=== PATIENT | male | born 1945 | race Caucasian/White ===

== ENCOUNTER → 2017-06-03 | Outpatient (CLI) | payer MEDICARE, OTHER ==
--- NOTE | 2017-06-03 12:13 | PCVCIMAG ---
APPROVED REPORT Exam: Nuclear Stress Test Indication: CAD Patient Location: Out-Patient Stress Nurse: Huma Prince RN, Hattie Maher RN NE Tech:Jarocho PruettRADHATCB Ht: 5 ft 9 in Wt: 250 lbs BSA: 2.27 m2 HR: 51 bpm BP: 182/75 mmHg BMI: 36.9 Rhythm: SB, RBBB Medical History Medical History: Age, PVD Carotids, CVD, TIA, COPD, Obesity, CAD, Former Smoker Medications: Amlodipine, ASA, Atorvastatin, Clonidine, Imdur, Hyzaar, Protonix Allergies: Amoxicillin, PCN, Augmentin Previous Cardiac Procedures: CABG Pretest Chest Pain Characteristics: No chest pain Exercise History: Sedentary Stress Test Details Stress Test: Pharmacologic stress testing performed using 0.4 mg of regadenoson per 5 mL given IV over 10 seconds. Reason for pharmacologic stress test: physical limitation. HR Resting HR: 51 bpmMax Heart Rate (APMHR): 148 bpm Max HR Achieved: 65 bpmTarget HR (85% APMHR): 125 bpm % of APMHR: 43 Recovery HR: 55 bpm BP Resting BP: 182/75 mmHg Max BP: 171/74 mmHg ECG Resting ECG: Sinus Bradycardia, RBBB Stress ECG: Sinus Rhythm, RBBB ST Change: Non-ischemic Recovery ECG: Sinus Rhythm, RBBB Clinical Reason for Termination: Completed protocol Stress Symptoms: Dyspnea, Lightheaded Exercise duration: min 55 sec Exercise capacity: 1.0 METs Symptoms resolved during recovery NM EXAM: Myocardial Perfusion REST/STRESS Imaging Protocol: Rest Tc-99m/Stress Tc-99m 1 day Resting Data Rest SPECT myocardial perfusion imaging was performed in supine position 45 minutes following the intravenous injection of 16.2 mCi of Tc-99m Sestamibi. Time of rest injection: 0750 Date: 06/03/2017 Administration Route: IV Administration Site: Right Hand Pharmacologic Stress Pharmacologic stress test was performed by injecting Regadenoson 0.4 mg IV push followed by the intravenous injection of 44.9 mCi of Tc-99m Sestamibi. Time of stress injection: 914 Date: 06/03/2017 Administration Route: IV Administration Site: Right Hand Gated Stress SPECT was performed 45 minutes after stress injection. The images were gated to evaluate regional wall motion and calculate left ventricular ejection fraction. Study Quality Study: Good Study Data Post stress, the left ventricular ejection was 59%.. SSS: 6 SRS: 3 SDS: 4 TID = 1.18. Perfusion There is a medium area of moderately reduced uptake in the mid and apical segment of the anterior wall which is seen on the stress images and improves on the resting images. This area is hypokinetic and is most consistent with myocardial scar with alessio-infarct ischemia. Wall Motion Hypokinesis of the distal anteroseptal segment. Nuclear Conclusion ECG Findings: non-ischemic Clinical Findings: non-diagnostic Nuclear Findings: positive for ischemia This study reveals an incomplete infarct in the mid to apical anterior segment with alessio-infarct ischemia. There is normal LV systolic function, with mild hypokinesis of the distal anterior segment.
== END | disposition home or self-care (01) ==
LOC: PCVCIMAG 07:44
PROVIDERS: ATTEND Internal Medicine Cardiovascular Disease
DX: I25.10 Atherosclerotic heart disease of native coronary artery without angina pectoris (principal); I73.9 Peripheral vascular disease, unspecified; J44.9 Chronic obstructive pulmonary disease, unspecified; I42.9 Cardiomyopathy, unspecified; R06.02 Shortness of breath; I77.9 Disorder of arteries and arterioles, unspecified; I38 Endocarditis, valve unspecified; M19.90 Unspecified osteoarthritis, unspecified site; E66.9 Obesity, unspecified; R00.1 Bradycardia, unspecified; I45.10 Unspecified right bundle-branch block; R94.31 Abnormal electrocardiogram [ECG] [EKG]; Z87.891 Personal history of nicotine dependence; Z95.1 Presence of aortocoronary bypass graft; Z79.82 Long term (current) use of aspirin; Z79.899 Other long term (current) drug therapy
CPT/HCPCS: 36415; 78452; 80061; 93005; 93017; A9500; G0463

== ENCOUNTER → 2018-02-12 | Outpatient (CLI) | payer MEDICARE | END | disposition home or self-care (01) | LOC: PCVCCLINIC 15:21 | DX: I25.10 Atherosclerotic heart disease of native coronary artery without angina pectoris (principal); I42.9 Cardiomyopathy, unspecified; Z95.1 Presence of aortocoronary bypass graft; Z87.891 Personal history of nicotine dependence; Z79.82 Long term (current) use of aspirin; Z79.899 Other long term (current) drug therapy; Z88.8 Allergy status to other drugs, medicaments and biological substances | CPT/HCPCS: 80061; 93005; G0463 ==

== ENCOUNTER → 2019-02-16 | Outpatient (CLI) | payer MEDICARE, OTHER ==
[~2019-02-16] MED LIST: REGADENOSON 0.4 MG/5 ML DISP.SYRIN. IV ONE
--- NOTE | 2019-02-16 13:00 | PCVCIMAG ---
APPROVED REPORT Imaging Protocol: Rest Tc-99m/Stress Tc-99m 1 day Study performed: 02/16/2019 08:23:19 Indication: Cardiomyopathy, Chest pain, CAD Patient Location: Out-Patient Stress Nurse: Hattie Maher RN, PAPITO Arias Tech:Jarocho PruettANNMARIE Ht: 5 ft 9 in Wt: 240 lbs BSA: 2.23 m2 HR: 48 bpm BP: 169/76 mmHg BMI: 35.4 Rhythm: Sinus Bradycardia, RBBB Medical History Medical History: Age, Hyperlipidemia, HTN, DM Non Insulin Medications: Norvasc, ASA, Atorvastatin, Catapress, Imdur, Losartan-HCTZ, Metoprolol, NTG SL, Actos Allergies: Amoxicillen Previous Cardiac Procedures: CABG, PCI Exercise History: Physically active Meds Held (24 hrs): Nitrates and Metoprolol Resting Data Rest SPECT myocardial perfusion imaging was performed in supine position 45 minutes following the intravenous injection of 15.9 mCi of Tc-99m Sestamibi. Time of rest injection: 829 Date: 02/16/2019 Administration Route: IV Administration Site: Right AC Pharmacologic Stress Pharmacologic stress test was performed by injecting Regadenoson 0.4 mg IV push over 10-15 seconds immediately followed by the intravenous injection of 46.4 mCi of Tc-99m Sestamibi. Time of stress injection: 944 Date: 02/16/2019 Administration Route: IV Administration Site: Right AC Gated Stress SPECT was performed 45 minutes after stress injection. The images were gated to evaluate regional wall motion and calculate left ventricular ejection fraction. Stress Test Details Stress Test: Pharmacologic stress testing performed using 0.4 mg of regadenoson per 5 mL given IV over 10 seconds. Reason for pharmacologic stress test: physical limitation. HRMax Heart Rate (APMHR): 146 bpm Resting HR: 48 bpmTarget HR (85% APMHR): 124 bpm Max HR Achieved: 68 bpm % of APMHR: 46 Recovery HR: 60 bpm BP Resting BP: 169/76 mmHg Max BP: 170/79 mmHg Recovery BP: 170/77 mmHg ECG Resting ECG: Sinus Bradycardia, RBBB Stress ECG: Sinus Rhythm, RBBB Arrhythmia: None Recovery ECG: Sinus Rhythm, RBBB Clinical Reason for Termination: Completed protocol Stress Symptoms: Abdominal Discomfort, Dyspnea, Left Arm Tingling Symptoms resolved with caffeine. Nurse Comments Post test in waiting room patient did experience chest discomfort and nausea for a few moments. Resolved with continued caffeiene intake. Stress ECG Conclusion ECG: Non-ischemic Study Quality Study: Good Study Data Post stress, the left ventricular ejection was 65%.. SSS: 4 SRS: 4 SDS: 2 TID = 0.97. Perfusion Medium sized area of moderate reversible ischemia involving the mid anterior left ventricle consistent with a left anterior descending distribution. This was seen on 2016 study and is less prominent today. Wall Motion Normal left ventricular function with no regional wall motion abnormalities. Nuclear Conclusion Medium sized area of moderate reversible ischemia involving the mid anterior left ventricle consistent with a left anterior descending distribution. This was seen on 2017 study and is less prominent today. Post stress, the left ventricular ejection was 65%. Interpreted by: Chilo Collier MD Electronically Approved: 02/16/2019 11:04:30 <Conclusion> ECG: Non-ischemic
== END | disposition home or self-care (01) ==
LOC: PCVCIMAG 08:17
PROVIDERS: ATTEND Internal Medicine Cardiovascular Disease
DX: I42.9 Cardiomyopathy, unspecified (principal); R07.9 Chest pain, unspecified; I25.10 Atherosclerotic heart disease of native coronary artery without angina pectoris; E78.5 Hyperlipidemia, unspecified; I10 Essential (primary) hypertension; R06.02 Shortness of breath; E11.9 Type 2 diabetes mellitus without complications; Z87.891 Personal history of nicotine dependence; Z95.1 Presence of aortocoronary bypass graft; Z88.0 Allergy status to penicillin
CPT/HCPCS: 78452; 93017; A9500; J2785

== ENCOUNTER → 2019-06-04 | Outpatient (CLI) | payer OTHER | END | disposition home or self-care (01) | LOC: PCVCCLINIC 15:10 | PROVIDERS: ATTEND Internal Medicine Cardiovascular Disease | DX: I25.10 Atherosclerotic heart disease of native coronary artery without angina pectoris (principal); I10 Essential (primary) hypertension; I45.10 Unspecified right bundle-branch block; E78.5 Hyperlipidemia, unspecified; J44.9 Chronic obstructive pulmonary disease, unspecified; E11.9 Type 2 diabetes mellitus without complications; I65.23 Occlusion and stenosis of bilateral carotid arteries; Z95.1 Presence of aortocoronary bypass graft; E66.9 Obesity, unspecified; Z82.49 Family history of ischemic heart disease and other diseases of the circulatory system; Z87.891 Personal history of nicotine dependence; Z88.1 Allergy status to other antibiotic agents; Z79.899 Other long term (current) drug therapy; Z79.82 Long term (current) use of aspirin | CPT/HCPCS: 36415; 80061; 93005; G0463 ==